=== PATIENT | male | born 1950 | race Caucasian/White ===

== ENCOUNTER 2019-06-26 14:13 | Observation (INO) | payer MEDICARE, BC ==
[~2019-06-26] VITALS: Ht 162.6 cm; Wt 106.3 kg
[2019-06-26] MEDS ORDERED: ASPIRIN 81 MG CHEW TAB PO ONE (14:30)
[2019-06-26] MEDS ORDERED: ONDANSETRON HCL INJ 2MG/ML 2ML 2 MG/ML VIAL IV PRN (14:45)
[2019-06-26 14:50] LABS: BASOPHILS # (AUTO) 0.1 (0.0-0.1); EOSINOPHILS # (AUTO) 0.1 (0.0-0.4); EOSINOPHILS % 0.9 % (0.0-6.0); HEMOGLOBIN 13.6 g/dL (14.0-18.0); LYMPHOCYTES # (AUTO) 1.6 (1.0-3.2); LYMPHOCYTES % 11.2 % (18.0-39.1); MEAN CORPUSCULAR HEMOGLOBIN 31.3 pg (28-32); MEAN CORPUSCULAR VOLUME 92.2 fL (81-99); MONOCYTES # (AUTO) 1.1 (0.2-0.8); MONOCYTES % 7.7 % (4.4-11.3); NEUTROPHILS % 78.7 % (38.7-80.0); PLATELET COUNT 437 x10e3/uL (140-360); RED BLOOD COUNT 4.34 x10e6/uL (4.3-5.7); RED CELL DISTRIBUTION WIDTH 13.7 % (11.7-14.4)
[2019-06-26 14:59] LABS: INR 0.9; PROTHROMBIN TIME 12.6 seconds (11.9-14.5)
[2019-06-26 15:00] LABS: PARTIAL THROMBOPLASTIN TIME 26.7 seconds (23.8-35.5)
[2019-06-26 15:08] LABS: ALANINE AMINOTRANSFERASE 46 IU/L (0-55); ALBUMIN 4.2 g/dL (3.5-5.0); ALBUMIN/GLOBULIN RATIO 1.4 (0.8-2.0); ALKALINE PHOSPHATASE 75 IU/L (40-150); ANION GAP 14.7 mmol/L (8-16); BLOOD UREA NITROGEN 10 mg/dL (7-26); BUN/CREATININE RATIO 11 (6-25); CALCIUM 9.6 mg/dL (8.4-10.2); CARBON DIOXIDE 26 mmol/L (22-29); CHLORIDE 99 mmol/L (98-107); CREATINE KINASE 2318 IU/L (30-200); CREATININE, SERUM 0.91 mg/dL (0.72-1.25); EST GLOMERULAR FILTRATION RATE > 60 ML/MIN (60-); GLUCOSE 122 mg/dL (74-118); MAGNESIUM 1.8 MG/DL (1.3-2.1); POTASSIUM 3.7 mmol/L (3.5-5.1); SODIUM 136 mmol/L (136-145)
[2019-06-26] MEDS: FAMOTIDINE 20 MG/2 ML VIAL IV SCH (15:08)
[2019-06-26 15:46] LABS: BILIRUBIN,URINE NEGATIVE (NEGATIVE); CLARITY,URINE CLEAR (CLEAR); COLOR,URINE YELLOW (YELLOW); KETONES,URINE NEGATIVE (NEGATIVE); LEUKOCYTE ESTERASE ,URINE TRACE (NEGATIVE); NITRITE,URINE NEGATIVE (NEGATIVE); PROTEIN,URINE DIPSTICK NEGATIVE (NEGATIVE); URINE UROBILINOGEN 0.2 mg/dL (0.2 - 1)
[2019-06-26] MEDS ORDERED: SODIUM CHLORIDE 0.9% 1000ML 1,000 ML IV SCH (16:00)
[2019-06-26 16:03] LABS: BACTERIA,URINE MODERATE /HPF; WBC,URINE (MAN) 0-5 /HPF (0-5)
--- NOTE | 2019-06-26 16:13 | Diagnostic Imaging Report ---
EXAMINATION: CHEST SINGLE (PORTABLE) INDICATION: Chest pain COMPARISON: None FINDINGS: LINES/TUBES:EKG leads overlie the chest. LUNGS:The lungs are well-inflated. No focal consolidation or pulmonary edema. PLEURA:No pleural effusion or pneumothorax. MEDIASTINUM:The cardiomediastinal silhouette appears normal in size and shape. Atherosclerotic calcifications of the thoracic aorta. BONES/SOFT TISSUES:No acute osseous injury. ABDOMEN:No free air under the diaphragm. IMPRESSION: No focal pneumonia or pulmonary edema. Signed by: Kendra Lopez MD on 06/26/2019 4:09 PM
[2019-06-26] MEDS ORDERED: LIPITOR20 MG PO (16:29)
[2019-06-26] MEDS ORDERED: LOSARTAN POTASS25 MG PO (16:29)
[2019-06-26] MEDS ORDERED: AMLODIPINE BESYL5 MG PO (16:29)
[2019-06-26 16:33] VITALS: BP 168/82
[2019-06-26 17:01] VITALS: BP 148/74
[2019-06-26 17:02] VITALS: BP_SYST 119; BP_SYST 139; BP_DIAS 69; BP_DIAS 77
--- NOTE | 2019-06-26 20:26 | NUR ---
Dr. Yovani Joseph paged to obtain order to renew home medications and to notify MD of elevated BP (164/86). Awaiting call back.
--- NOTE | 2019-06-26 20:29 | NUR ---
Patient received lying in bed. Family at bedside. AAO x 4. Patient had no complaints of pain. No signs of respiratory distress. Fall precautions implemented. Patient instructed to call for assistance when needed. Call light within reach.
[2019-06-26 20:33] VITALS: BP 164/86
--- NOTE | 2019-06-26 20:48 | NUR ---
Dr. Yovani Joseph called with order to renew home medications and discontinue IV fluids. Also received new order for CBC and BMP in am. No order received for PRN BP medication.
[2019-06-26 21:00] VITALS: BP 164/86
[2019-06-26] MEDS ORDERED: ATORVASTATIN 40 MG TAB PO SCH (21:00)
[2019-06-26] MEDS ORDERED: ATORVASTATIN 20 MG TAB PO SCH (21:00)
--- NOTE | 2019-06-26 22:15 | NUR ---
Blood specimen sent to lab for analysis of cardiac enzymes.
[2019-06-27 00:31] VITALS: BP 157/91
[2019-06-27 00:51] VITALS: BP 108/64
[2019-06-27] MEDS: FAMOTIDINE 20 MG/2 ML VIAL IV SCH (02:50)
[2019-06-27 05:41] LABS: ALANINE AMINOTRANSFERASE 17 IU/L (0-55); ALBUMIN 3.7 g/dL (3.5-5.0); ALBUMIN/GLOBULIN RATIO 1.3 (0.8-2.0); ALKALINE PHOSPHATASE 70 IU/L (40-150); ANION GAP 14.7 mmol/L (8-16); BLOOD UREA NITROGEN 9 mg/dL (7-26); BUN/CREATININE RATIO 10 (6-25); CALCIUM 9.4 mg/dL (8.4-10.2); CARBON DIOXIDE 23 mmol/L (22-29); CHLORIDE 100 mmol/L (98-107); CHOL/HDL RATIO 4.3 (3.9-4.7); CHOLESTEROL 183 MD/DL (0-199); CREATININE, SERUM 0.94 mg/dL (0.72-1.25); EST GLOMERULAR FILTRATION RATE > 60 ML/MIN (60-); GLUCOSE 88 mg/dL (74-118); HDL CHOLESTEROL 43 MG/DL (40-60); LDL CHOLESTEROL 116 MG/DL (60-130); POTASSIUM 3.7 mmol/L (3.5-5.1); SODIUM 134 mmol/L (136-145); TRIGLYCERIDES 119 MG/DL (0-149)
[2019-06-27 05:54] LABS: HEMATOCRIT 38.6 % (38.2-49.6); HEMOGLOBIN 13.4 g/dL (14.0-18.0); MEAN CORPUSCULAR HEMOGLOBIN 31.8 pg (28-32); MEAN CORPUSCULAR HGB CONC 34.7 g/dL (31-35); MEAN CORPUSCULAR VOLUME 91.5 fL (81-99); PLATELET COUNT 408 x10e3/uL (140-360); RED BLOOD COUNT 4.22 x10e6/uL (4.3-5.7)
[2019-06-27 06:01] LABS: CREATINE KINASE MB 3.1 ng/mL (0-5.0)
[2019-06-27 06:32] VITALS: BP 140/71
[2019-06-27 07:12] LABS: EOSINOPHILS % (MANUAL) 4 % (0-7); LYMPHOCYTES % (MANUAL) 18 % (19-48); MONOCYTES % (MANUAL) 7 % (3.4-9.0); NEUTROPHILS % (MANUAL) 65 % (40-74); PLATELET ESTIMATE SLIGHTLY INCREASED; PLATELET MORPHOLOGY COMMENT NORMAL; RBC MORPHOLOGY COMMENT NORMAL
--- NOTE | 2019-06-27 07:12 | NUR ---
Patient resting comfortably. Shift report given to oncoming nurse.
[2019-06-27 08:00] VITALS: BP 156/81
[2019-06-27] MEDS ORDERED: ASPIRIN 81 MG ENTERIC COATED PO SCH (09:00)
[2019-06-27] MEDS ORDERED: LOSARTAN POTASSIUM 25 MG TAB PO SCH (09:00)
[2019-06-27] MEDS ORDERED: AMLODIPINE BESYLATE 5 MG TAB PO SCH (09:00)
[2019-06-27 09:57] VITALS: BP 156/81
[2019-06-27] MEDS ORDERED: REGADENOSON 0.4 MG/5 ML SYR IV ONE (10:08)
--- NOTE | 2019-06-27 11:24 | NUR ---
Patient left the floor via wheelchair for stress test
--- NOTE | 2019-06-27 15:50 | NUR ---
OK per Dr. Marcano that patient can dc home and follow up in clinic in two weeks. Paged Dr. Chiara Joseph to see if patient can dc home today. Awaiting call back
--- NOTE | 2019-06-27 15:53 | NUR ---
Spoke to Dr Chiara Joseph, he said patient can dc home today.
[2019-06-27 16:00] VITALS: BP 137/71
[2019-06-27 16:05] LABS: CREATINE KINASE MB 2.8 ng/mL (0-5.0)
--- NOTE | 2019-06-27 16:17 | NUR ---
Discharge instructions given to the patient, he verbalized understanding. IV to the left ac was removed with tip intact.
--- NOTE | 2019-06-27 17:44 | Myoview Stress Test ---
DATE OF STUDY: 06/26/2019 22:56:00 Stress Test - Treadmill ONLY PROCEDURE TITLE: Rest/stress single isotope SPECT imaging with exercise stress and gated SPECT imaging. INDICATION: Chest pain. PROCEDURE IN DETAIL: The patient performed treadmill exercise using a Peewee protocol, exercising for 4 minutes and 28 seconds to stage II and completing estimated workload of 7 metabolic equivalents (METS). The test was terminated due to target heart rate achieved. Heart rate was 79 beats per minute at rest and increased to 147 beats per minute at peak exercise, which is 98% of the maximum predicted heart rate. The resting blood pressure was 164/83 mmHg and increased to 205/86 mmHg, which is a normal response. Resting electrocardiogram demonstrated normal sinus rhythm with right ventricular conduction delay. There were no ST-segment changes suggestive of myocardial ischemia; however, frequent PVCs, as well as PACs were noted during recovery. Myocardial perfusion imaging was performed at rest following injection of 10.8 mCi of tetrofosmin. At peak exercise, the patient was injected with 30 mCi of tetrofosmin. Gated post-stress tomographic imaging was performed. FINDINGS: The overall quality of study is fair. Left ventricular cavity is noted to be normal size on the rest and stress studies. SPECT images demonstrate a small mild perfusion defect in the basal inferior wall on stress that is not present at rest. Gated SPECT imaging reveals normal myocardial thickening and wall motion. The left ventricular ejection fraction was calculated to be 60%. IMPRESSION: Myocardial perfusion imaging is abnormal. There is a small area of ischemia in the basal inferior wall. Frequent PVCs and PACs were noted during recovery. Overall, left ventricular systolic function was normal without regional wall motion abnormalities. Myla Marcano MD [facility] /[id number]
[2019-06-27] MEDS ORDERED: FAMOTIDINE 20 MG TAB PO SCH (21:00)
--- NOTE | 2019-06-28 02:21 | Consultation ---
DATE OF CONSULTATION: 06/27/2019 Cardiology Consultation REQUESTING PHYSICIAN: Dr. Joseph. REASON FOR CONSULTATION: Chest pain and palpitations. HISTORY OF PRESENT ILLNESS: This is a 69-year-old male with history of hypertension and hyperlipidemia, who presents with palpitations and chest pain. He reports that he had a strange feeling in his chest on Monday morning, lasting an hour. At that time, it was 1 to 2/10 in severity, associated with fluttering in his chest. He denies any shortness of breath, nausea, or diaphoresis. The pain lasted hours before resolving. He then had recurrence of this symptom on Monday. He therefore presented to the ER for further evaluation. He denies any edema, orthopnea, PND, or lightheadedness. REVIEW OF SYSTEMS: Negative except as per HPI. PAST MEDICAL HISTORY: 1. Hypertension. 2. Hyperlipidemia. PAST SURGICAL HISTORY: Denies. ALLERGIES: PENICILLIN. MEDICATIONS: Please see medication list. SOCIAL HISTORY: He smokes a pack a day for the last 50 years. Drinks 4 to 5 beers a week. No drugs. FAMILY HISTORY: Denies family history of cardiac disease. PHYSICAL EXAMINATION: VITAL SIGNS: Temperature 97.8 degrees, pulse 67, respiratory rate 12, blood pressure 156/81, and oxygen saturation 96% on room air. GENERAL: A well-developed, well-nourished man, in no acute distress. HEENT: Normocephalic and atraumatic. Pupils are equal. No scleral icterus. NECK: Supple. No thyromegaly or cervical lymphadenopathy. No carotid bruits. LUNGS: Clear to auscultation bilaterally. No wheezes or crackles. CARDIOVASCULAR: Normal rate, regular rhythm. No murmur. Normal S1, S2. ABDOMEN: Soft, nontender. EXTREMITIES: No edema. NEUROLOGIC: Nonfocal exam. LABORATORY DATA: WBC 12.91, hemoglobin 13.4, hematocrit 38.6, and platelets 408. Sodium 134, potassium 3.7, chloride 100, CO2 of 23, BUN 9, and creatinine 0.94. Troponin 0.020, CK 1484. Cholesterol 183, LDL 116, HDL 43, and triglycerides 119. EKG, normal sinus rhythm, normal ECG. IMPRESSION: 1. Chest pain. 2. Palpitations. 3. Rhabdomyolysis. 4. Hypertension. 5. Hyperlipidemia. RECOMMENDATIONS: The patient is ruled out for myocardial infarction with serial cardiac biomarkers. The stress test revealed small mild ischemia in the basal inferior wall. Recommendation of aspirin. Continue statin therapy. The patient's blood pressure is controlled. The patient will need to follow up in the office in one week for Holter monitor, as he had frequent PACs and PVCs noted in recovery. In addition, he will need further titration of his atorvastatin as an outpatient as well as screening for abdominal aortic aneurysm. These findings were discussed with the patient, who agrees with the plan of care. Thank you for this consult. We will continue to follow. Myla Marcano MD [facility] /[id number]
== END 2019-06-27 16:16 | disposition home or self-care (01) ==
LOC: ER 14:13 → ERHOLD 14:37 → MED/SURG2 15:41
DX: R07.9 Chest pain, unspecified (principal); R00.2 Palpitations; I25.89 Other forms of chronic ischemic heart disease; I49.3 Ventricular premature depolarization; I49.1 Atrial premature depolarization; I10 Essential (primary) hypertension; E78.5 Hyperlipidemia, unspecified; F17.210 Nicotine dependence, cigarettes, uncomplicated; Z82.49 Family history of ischemic heart disease and other diseases of the circulatory system; M62.82 Rhabdomyolysis
CPT/HCPCS: 36415 ×2; 71045; 78452; 80053 ×2; 80061; 81001; 82550 ×2; 82553 ×2; 83735; 83880; 84484 ×2; 85007; 85025; 85027; 85610; 85730; 93005; 93017; 93306; 99284; A9502; G0378 ×2; J7030